=== PATIENT | male | born 1945 | race Caucasian/White ===

== ENCOUNTER 2019-07-12 11:43 | Emergency (ER) | payer MEDICARE ==
[~2019-07-12] VITALS: Ht 188 cm; Wt 103.0 kg
[2019-07-12 13:11] LABS: BASOPHILS # (AUTO) 0.1 X10'3 (0-0.2); BASOPHILS % (AUTO) 0.6 % (0-1); EOSINOPHILS # (AUTO) 0.1 X10'3 (0-0.9); EOSINOPHILS % (AUTO) 0.9 % (0-6); HEMATOCRIT 35.6 % (42.0-52.0); HEMOGLOBIN 12.3 g/dl (14.0-17.9); LYMPHOCYTES # (AUTO) 0.8 X10'3 (1.1-4.8); LYMPHOCYTES % (AUTO) 9.4 % (21-51); MEAN CORPUSCULAR HGB CONC 34.5 g/dL (33.0-36.5); MEAN CORPUSCULAR VOLUME 92.9 FL (78-98); MEAN PLATELET VOLUME 7.5 FL (7.4-10.4); MONOCYTES # (AUTO) 0.8 X10'3 (0-0.9); MONOCYTES % (AUTO) 9.5 % (2-12); NEUTROPHILS # (AUTO) 7.1 X10'3 (1.8-7.7); NEUTROPHILS % (AUTO) 79.6 % (42-75); PLATELET COUNT 239 X10'3 (140-440); RED BLOOD COUNT 3.83 X10'6 (4.70-6.10); RED CELL DISTRIBUTION WIDTH 14.6 % (11.5-14.5); WHITE BLOOD COUNT 8.9 X10'3 (4.5-11.0)
[2019-07-12 13:23] LABS: PARTIAL THROMBOPLASTIN TIME 42 SECONDS (22-32)
[2019-07-12 13:37] LABS: ALANINE AMINOTRANSFERASE 27 U/L (12-78); ALBUMIN 3.3 G/DL (3.4-5.0); ALBUMIN/GLOBULIN RATIO 0.8 (1.1-1.5); ALKALINE PHOSPHATASE 57 IU/L (46-116); ANION GAP 10 (8-16); ASPARTATE AMINO TRANSFERASE 24 U/L (10-37); BILIRUBIN,TOTAL 0.6 MG/DL (0.1-1.0); BLOOD UREA NITROGEN 12 MG/DL (7-18); BUN/CREATININE RATIO 11.5 (5.4-32.0); CALCIUM 8.6 MG/DL (8.5-10.1); CHLORIDE 106 MMOL/L (99-107); CREATININE 1.04 MG/DL (0.60-1.10); GLUCOSE 110 MG/DL (70-104); POTASSIUM 3.6 MMOL/L (3.5-5.1); SODIUM 143 MMOL/L (135-145); TOTAL CARBON DIOXIDE 27.5 MMOL/L (24-32); TOTAL PROTEIN 7.6 G/DL (6.4-8.2); eGFR 70 ML/MIN
[2019-07-12] MEDS ORDERED: iohexol 300mg/ml 100ml inj. ONE (17:40)
[2019-07-12] MEDS ORDERED: CefTRIAXone 2gm/D5W 50ml 50 ML IV ONE (18:55)
[2019-07-12] MEDS ORDERED: CEPH250T PO (18:55)
[2019-07-12 19:27] VITALS: BP 170/90
== END 2019-07-12 19:28 | disposition home or self-care (01) ==
LOC: ER 11:44
DX: L03.116 Cellulitis of left lower limb (principal); L90.9 Atrophic disorder of skin, unspecified; Z86.718 Personal history of other venous thrombosis and embolism; Z79.2 Long term (current) use of antibiotics
CPT/HCPCS: 36415; 71045; 73700; 80053; 83605; 84145; 85025; 85610; 85730; 87040; 93971; 96365; 99284; J0696; Q9967